=== PATIENT | male | born 1980 | race Caucasian/White ===

== ENCOUNTER 2019-02-03 10:10 | Day surgery (SDC) | payer OTHER ==
[2019-02-02 18:12] LABS: BASOPHILS % (AUTO) 0.3 % (0.0-2.0); EOSINOPHILS % (AUTO) 0.3 % (0.0-4.0); HEMATOCRIT 46.6 % (36-54); HEMOGLOBIN 15.7 g/dL (14.0-18.0); LYMPHOCYTES # (AUTO) 0.7 K/uL (1.0-5.5); LYMPHOCYTES % (AUTO) 13.1 % (20.5-51.5); MEAN CORPUSCULAR HEMOGLOBIN 33 pg (27-31); MEAN CORPUSCULAR HGB CONC 34 % (32-36); MEAN CORPUSCULAR VOLUME 98 fL (79.0-98.0); MONOCYTES # (AUTO) 0.3 K/uL (0.0-1.0); MONOCYTES % (AUTO) 5.8 % (1.7-9.3); NEUTROPHILS # (AUTO) 4.6 K/uL (1.8-7.7); NEUTROPHILS % (AUTO) 80.5 % (40.0-70.0); PLATELET COUNT (AUTO) 189 K/uL (130-430); RED BLOOD CELL COUNT(AUTO) 4.77 MIL/uL (4.2-6.2); RED CELL DISTRIBUTION WIDTH 13.6 % (9.0-15.0); WHITE BLOOD COUNT (AUTO) 5.7 K/uL (4.8-10.8)
[2019-02-02 18:26] LABS: ALBUMIN 3.5 g/dL (3.4-4.8); CALCIUM 8.4 mg/dL (8.4-11.0); CREATININE 1.3 mg/dL (0.55-1.30); POTASSIUM 3.6 mmol/L (3.5-5.1); TOTAL BILIRUBIN 0.4 mg/dL (0.0-1.0)
[~2019-02-03] VITALS: Ht 193 cm; Wt 102.1 kg
[~2019-02-03 10:10] MED LIST: CEFAZOLIN 1 GM IVPB PREMIX 50 ML IV ONE
[2019-02-03] MEDS ORDERED: PROPOFOL 200MG/ 20ML VIAL (DIPRIVAN) IV ONE (13:10)
[2019-02-03] MEDS ORDERED: fentaNYL CITRATE/PF 100 MCG/2 ML AMP IVP ONE (13:10)
[2019-02-03] MEDS ORDERED: SEVOFLURANE 15 MIN GAS INH ONE (13:10)
[2019-02-03] MEDS ORDERED: NS IRRIG SOLN 1000 ML IR ONE (13:10)
[2019-02-03] MEDS ORDERED: MIDAZOLAM HCL 5 MG/5 ML VIAL IVP ONE (13:10)
[2019-02-03] MEDS ORDERED: OXYCODONE/ACETAMINOPHEN 5-325 TABLET PO ONE (15:15)
[2019-02-03] MEDS ORDERED: ONDANSETRON HCL 4 MG/2 ML VIAL IVP ONE (15:15)
[2019-02-03] MEDS ORDERED: ONDANSETRON HCL 4 MG/2 ML VIAL ONE (15:32)
[2019-02-03] MEDS ORDERED: OXYCODONE/ACETAMINOPHEN 5-325 TABLET ONE ×3 (15:58→21:46)
[2019-02-03] MEDS: fentaNYL CITRATE/PF 100 MCG/2 ML AMP IVP SCH ×2 (16:00→16:15)
[2019-02-03] MEDS ORDERED: fentaNYL CITRATE/PF 100 MCG/2 ML AMP ONE (16:10)
[2019-02-03] MEDS ORDERED: MORPHINE 4 MG/ML INJ. SYRINGE IVP PRN ×2 (17:30→20:15)
--- NOTE | 2019-02-03 18:40 | NUR ---
ADMISSION NOTE PT ALERT AND ORIENTED. PAIN CONTROLLED AT THIS TIME. FAMILY AT BEDSIDE.
--- NOTE | 2019-02-03 19:30 | NUR ---
CLOSING NOTE PT AWAKE, GAVE SANDWHICH, JELLO AND CRANBERRY JUICE. PT TOLERATED WELL. PAIN CONTROLLED AT THIS TIME. ALL NEEDS MET THROUGHOUT SHIFT. CALL LIGHT WITHIN REACH, BED IN LOW AND LOCKED POSITION WITH BED ALARM ON. PT CARE ENDORSED TO [employer] RNKULW[employer].
[2019-02-03] MEDS ORDERED: OXYCODONE/ACETAMINOPHEN 5-325 TABLET PO PRN (20:15)
--- NOTE | 2019-02-03 20:15 | NUR ---
PM SHIFT ASSESSMENT Received patient aox4, vital signs stable, on room air, c/o of severe pain from surgery site, paged Dr. JOSEPH, new medication ordered for pain management, will carry out, patient updated on plan of care, verbalized understanding, compliant. IV line intact and patent, saline locked, oriented to use call light for nurse assistance, light within reach.
--- NOTE | 2019-02-03 20:30 | NUR ---
ROUNDS/PAIN Patient c/o of severe pain, medicated with morphine 4 mg IVP for pain management, educated on side effects of medication, patient verbalized understanding. HS snack provided, oriented to call light for nurse assistance, significant other at bedside, safety measures in place, will monitor.
[2019-02-03] MEDS ORDERED: MORPHINE 4 MG/ML INJ. SYRINGE ONE ×2 (20:34→23:05)
[2019-02-03 21:13] VITALS: BP_SYST 107
--- NOTE | 2019-02-03 22:03 | NUR ---
ROUNDS/PAIN Patient ambulated to bathroom, steady gait noted, c/o of pain, medicated with percocet 1 tab for pain management, educated on side effects of medication, verbalized understanding, compliant, hs snack given, call light within reach, safety measures in place.
--- NOTE | 2019-02-03 23:01 | NUR ---
ROUNDS/PAIN Patient ambulated to bathroom again, no bowel movement, steady gait noted, c/o of pain, medicated with morphine 4 mg IVP for pain management, re educated on side effects of medication, verbalized understanding, compliant, call light within reach, safety measures in place.
[2019-02-04] VITALS: BP_SYST 104
--- NOTE | 2019-02-04 00:18 | NUR ---
RN ROUNDS Patient resting quietly in bed, breathing is even and unlabored, call light within reach, safety measures in place, will monitor.
--- NOTE | 2019-02-04 01:52 | NUR ---
RN ROUNDS Patient asleep, respirations even and unlabored, call light within reach, safety measures in place, will monitor.
--- NOTE | 2019-02-04 02:21 | NUR ---
ROUNDS/PAIN Patient awake and c/o of pain, medicated with morphine 4 mg IVP for pain management, reinforced side effects of medication, patient verbalized understanding, compliant, call light within reach, safety measures in place.
[2019-02-04] MEDS ORDERED: MORPHINE 4 MG/ML INJ. SYRINGE ONE ×2 (02:22→06:46)
--- NOTE | 2019-02-04 03:46 | NUR ---
ROUNDS/PAIN Patient awake and c/o of pain, percocet 1 tab for pain management, reinforced side effects of medication, patient verbalized understanding, compliant, call light within reach, safety measures in place.
[2019-02-04] MEDS ORDERED: OXYCODONE/ACETAMINOPHEN 5-325 TABLET ONE (03:53)
--- NOTE | 2019-02-04 06:38 | NUR ---
RN ROUNDS Patient awake and c/o of pain, morphine ivp given for pain management, reinforced side effects of medication, patient verbalized understanding, compliant, needs attended through out the shift,call light remains within reach, safety measures maintained, will reassess pain level shortly.
--- NOTE | 2019-02-04 07:15 | NUR ---
Opening Note Received bedside SBAR report from automation and controls instructor RN, patient in bed resting, respirations even and unlabored on room air, IV site clean dry and intact, bed in low and locked position, educated patient on purpose of bed alarm, patient refusing bed alarm, call light in reach
[2019-02-04 08:00] VITALS: BP_SYST 103
--- NOTE | 2019-02-04 08:37 | NUR ---
Bladder Scan Patient voided X1, post void bladder scan completed, 32mL residual noted on bladder scan
[2019-02-04 10:18] VITALS: BP_SYST 101
[2019-02-04] MEDS ORDERED: PERC10 PO ×2 (10:25→10:39)
[2019-02-04] MEDS ORDERED: PERCO (10:30)
[2019-02-04] MEDS ORDERED: OXYC-128 PO ×2 (10:33→10:41)
--- NOTE | 2019-02-04 11:20 | NUR ---
Discharge Discharge packet and information given to patient, patients IV catheter removed, catheter intact, no bleeding, written prescription provided to patient, no acute distress noted, steady gait noted, all belongings sent with patient, patient accompanied by Brooke for discharge home, patient taken to lobby via wheel chair
== END 2019-02-04 11:10 | disposition home or self-care (01) ==
LOC: SDS 10:10 → SMU 10:10 → SDS 02-04 11:10
PROVIDERS: ATTEND Surgery
DX: K60.5 Anorectal fistula (principal); K64.4 Residual hemorrhoidal skin tags
CPT/HCPCS: 36415; 46270; 46999; 71046; 80053; 85025; 88304; J0690; J2250; J2270 ×2; J2405; J2704; J3010; J7120